=== PATIENT | female | born 1960 | race Caucasian/White ===

== ENCOUNTER 2022-07-19 10:00 | Outpatient (RCR) | payer MEDICAID, SELFPAY | END 2022-11-03 09:28 | disposition home or self-care (01) | PROVIDERS: PCP Physician Assistant Medical; Visit Provider Physician Assistant Medical | DX: N81.89 Other female genital prolapse (principal); M54.2 Cervicalgia; Z51.89 Encounter for other specified aftercare | CPT/HCPCS: 97110; 97112; 97140; 97162; 97163; 97535 ==

== ENCOUNTER 2024-02-12 18:25 | Emergency (ER) | payer OTHER, SELFPAY ==
[2024-02-12 18:32] VITALS: BP 108/68; PULSE 111; RESP 19; TEMP 37.7; O2SAT 94; BMI 24.5
--- NOTE | 2024-02-12 18:49 | CRLHL7_ITS ---
For Patients: As a result of the Century Cures Act, medical imaging exams and procedure reports are released immediately into your electronic medical record. You may view this report before your referring provider. If you have questions, please contact your health care provider. Indication Cough Technique Two view(s) of the chest Comparison None Findings The cardiomediastinal silhouette and pulmonary vasculature are unremarkable. There is no focal airspace consolidation, pleural effusion, or pneumothorax. No displaced fractures. Impression No acute cardiopulmonary process. Dictated by Tiburcio Rice MD @ 02/12/2024 7:40:08 PM (Electronically Signed)
--- NOTE | 2024-02-12 18:50 | ED.GENADULT ---
HPI - General Adult General Chief complaint: Sore Throat Stated complaint: Sore throat, shortness of breath Time Seen by Provider: 02/12/24 18:28 History of Present Illness HPI narrative: This 63-year-old female comes in reporting sore throat and congestion over the past week. She feels like she has some decreased ability to ambulate due to these symptoms. She did measure a temperature this morning at 101 and another time at 102? F. She arrives here with temperature at 99.9? F. She does have some tachycardia on arrival with heart rate around 110 beats per minute. She states that she had a mild sore throat for the past month or so but symptoms have worsened in the past week. Related Data Home Medications ?Medication ?Instructions ?Recorded ?Confirmed estradiol 0.01% (0.1 mg/gram) 1 vaginal .Twice Weekly 08/24/22 08/24/22 vaginal cream gabapentin 300 mg capsule 300 mg PO QDAY 08/24/22 08/24/22 paroxetine HCl 20 mg tablet 20 mg PO QDAY 08/24/22 08/24/22 Allergies Allergy/AdvReac Type Severity Reaction Status Date / Time tetracycline Allergy esophogeal Verified 08/24/22 09:27 ulcer thimerosal Allergy in eye Verified 08/24/22 09:27 gtts caused eyes to become bright red Review of Systems Status of ROS: Reports: 10 or more systems reviewed and unremarkable except as noted in History and below Narrative: Constitutional: No weight gain or loss. Eyes: No discharge. No vision changes. HENT: No congestion, no sore throat, no ear pain. Cardiovascular: No chest pain, no palpitations. Respiratory: No shortness of breath, no wheezes. She reports a cough. Gastrointestinal: No abdominal pain, no vomiting, no diarrhea. Genitourinary: No dysuria, no hematuria. Musculoskeletal: Normal range of motion. Skin: No rashes, no pruritis. Neurological: No weakness, sensory change, speech change. Endo/Heme/Allergies: No bruising or bleeding. No polydipsia. Pysch: no suicidality, no anxiety, no insomnia. All other systems reviewed and are negative. [facility] Medical History (Updated 02/12/24 @ 20:01 by Landon Somers MD) Vitamin D deficiency ?E55.9 - Vitamin D deficiency, unspecified (ICD-10) Basal cell carcinoma (BCC) ?C44.91 - Basal cell carcinoma of skin, unspecified (ICD-10) Anxiety ?F41.9 - Anxiety disorder, unspecified (ICD-10) Surgical History (Updated 08/24/22 @ 09:29 by Henny Maxwell ~ RN CLINICAL DOCUMENTATION, RN CLINICAL DOCUMENTATION) History of total vaginal hysterectomy (TVH) ?Z90.710 - Acquired absence of both cervix and uterus (ICD-10) Family History (Updated 08/18/22 @ 16:08 by Meghan Olmstead ~ PLATFORM ENGINEER, PLATFORM ENGINEER) Father Stroke High blood pressure High cholesterol Diabetes Maternal Grandfather Stroke Paternal Grandfather Stroke Mother Cancer Social History Smoking Status: Never smoker Exam Narrative: Exam Narrative: Constitutional: Well-developed, well-nourished, no acute distress. HEENT: Normocephalic, atraumatic. Neck: Normal range of motion. Nontender. Supple. Heart: Regular. No murmurs. Normal rate. Intact distal pulses. Lungs: Clear to auscultation. No chest discomfort. No wheezes, rhonchi, or rales. Abdomen: Normal bowel sounds. Nontender. No rebound tenderness. Genitalia: Deferred. Back: No midline tenderness. Normal range of motion. Extremities: Normal range of motion. No injury. Skin: Intact. No rash. Warm. No erythema or pallor. Neurologic: No altered sensation. No weakness. Alert and oriented. Psychiatric: No suicidality. No anxiety or depression. No insomnia. Nursing notes and vitals signs are reviewed. Const: Vital Signs, click to edit/add: Vital Signs - 24 hr 02/12/24 18:32 Temperature 99.9 F H Pulse Rate [Pulse Oximeter] 111 H Respiratory Rate 19 Blood Pressure [Ri ght Upper Arm] 108/68 Pulse Oximetry 94 Oxygen Delivery Me thod Room Air Course Vital Signs Vital signs: Initial Vital Signs Temperature 99.9 F H 02/12/24 18:32 Temperature Source Temporal Artery Scan 02/12/24 18:32 Pulse Rate 111 H 02/12/24 18:32 Respiratory Rate 19 02/12/24 18:32 Blood Pressure 108/68 02/12/24 18:32 Blood Pressure Mean 81 02/12/24 18:32 Pulse Oximetry 94 02/12/24 18:32 Oxygen Delivery Method Room Air 02/12/24 18:32 Vital Signs Temperature 99.9 F H 02/12/24 18:32 Pulse Rate 111 H 02/12/24 18:32 Respiratory Rate 19 02/12/24 18:32 Blood Pressure 108/68 02/12/24 18:32 Pulse Oximetry 94 02/12/24 18:32 Oxygen Delivery Method Room Air 02/12/24 18:32 Temperature 99.9 F H 02/12/24 18:32 Pulse Rate 111 H 02/12/24 18:32 Respiratory Rate 19 02/12/24 18:32 Blood Pressure 108/68 02/12/24 18:32 Pulse Oximetry 94 02/12/24 18:32 Oxygen Delivery Method Room Air 02/12/24 18:32 Medications Administered Medications: Discontinued Medications Generic Name Dose Route Start Last Admin Trade Name Jrq PRN Reason Stop Dose Admin Dexamethasone 10 mg 02/12/24 18:49 02/12/24 18:55 Dexamethasone 10 Mg/Ml Inj PO 02/12/24 18:50 10 mg ONCE ONE Administration Medical Decision Making MDM Narrative Medical decision making narrative: In comes in reporting sore throat and cough and states that she feels lightheaded a bit at 1st when getting up but she was able to ambulate in here normally. Her initial vital signs did show a heart rate at 111 beats per minute. Upon recheck at rest she had heart rate around 85-90 beats per minute. She is not tripping triggers that indicate a need for sepsis workup. A chest x-ray is obtained which shows no acute pulmonary disease. A viral swab is negative for all viral infections tested. Additionally her strep test was negative. The patient did receive an oral dose of dexamethasone 10 mg. She states that her symptoms began about a month ago but have worsened in the last week or so. She appears to be okay to be discharged home. I did provide prescription for Zithromax and some tablets of Tylenol 3. Lab Data Labs: Lab Results 02/12/24 Range/Units 18:45 SARS-CoV-2 (PCR) Negative SARS-CoV-2 (Negative) Influenza Type A (PCR) Negative PCR FLU A (Negative) Influenza Type B (PCR) Negative PCR FLU B (Negative) RSV (PCR) Negative PCR RSV (Negative) Group A Strep DNA NOT DETECTED (Not Detectd) Imaging Data Chest x-ray: Radiologist's impression: No acute cardiopulmonary process. Discharge Plan Discharge Clinical Impression: Acute respiratory infection Patient Disposition: Home w/ Parent or Adult Condition: Stable Additional Instructions: Take medication as prescribed. Follow up with MD or return if symptoms are persistent or worsening. Prescriptions: No Action estradiol 0.01 % (0.1 mg/gram) cream 1 vaginal .Twice Weekly Rx Instructions: use 0.5 g nightly for two weeks, then 1 g twice weekly paroxetine HCl 20 mg tablet 20 mg PO QDAY gabapentin 300 mg capsule 300 mg PO QDAY Follow Up/Referrals: Jeri Wheeler PA-C [Primary Care Provider] - Stand Alone Forms: [employer] Info Instructions
[2024-02-12] MEDS: dexAMETHasone 10 MG/ML inj PO (18:55)
[2024-02-12 19:26] LABS: Strep A DNA Probe* NOT DETECTED (Not Detectd)
[2024-02-12 19:35] LABS: PCR FLU A Negative PCR FLU A (Negative); PCR FLU B Negative PCR FLU B (Negative); PCR RSV Negative PCR RSV (Negative); SARS PCR* Negative SARS-CoV-2 (Negative)
== END 2024-02-12 20:08 | disposition home or self-care (01) ==
PROVIDERS: Emergency Provider Emergency Medicine Emergency Medical Services; PCP Physician Assistant Medical
DX: J06.9 Acute upper respiratory infection, unspecified (principal)
CPT/HCPCS: 71046; 87631; 87651; 99284; J1100

== ENCOUNTER 2024-02-14 17:13 | Emergency (ER) | payer OTHER, SELFPAY ==
[2024-02-14 17:33] VITALS: BP 101/60; PULSE 105; RESP 18; TEMP 38.5; O2SAT 96; BMI 25.1
--- NOTE | 2024-02-14 17:47 | CRLHL7_ITS ---
For Patients: As a result of the Cures Act, medical imaging exams and procedure reports are released immediately into your electronic medical record. You may view this report before your referring provider. If you have questions, please contact your health care provider. INDICATION: Cough, fever. TECHNIQUE: Chest 2 views. COMPARISON: 02/12/2024. FINDINGS: Cardiovascular and mediastinum: Heart size and vasculature are normal in caliber and appearance. Lungs and pleural spaces: Lungs are clear. No sign of infiltrate or mass. No sign of pleural effusion. No pneumothorax. Bones and soft tissues: Unremarkable for age. IMPRESSION: No evidence of an acute pulmonary process. Dictated by Daniel Doshi MD @ 02/14/2024 7:18:54 PM (Electronically Signed)
--- NOTE | 2024-02-14 18:10 | ED_ITS ---
HPI - General Adult General Date Seen: 02/14/24 Chief complaint: Urogenital Problems, Female Stated complaint: Blood in urine Time Seen by Provider: 02/14/24 17:29 Source: patient, RN notes reviewed and old records reviewed Mode of arrival: ambulatory Limitations: no limitations History of Present Illness HPI narrative: Patient is a 63-year-old woman, generally pretty healthy, here with a complaint of hematuria. She was seen here 2 days ago, with respiratory symptoms and fever. She tells me she has had a cough that is been hanging on for a month or 2 but it has been worse the past few days. She had an x-ray on Tuesday that was negative. She was treated with a Z-Michele, dexamethasone, but notes that she has not felt significantly improved. Continues to have fevers up to 102 at home. Today she noted some burning with urination this morning and then this afternoon she had gross hematuria. She denies chest pain, has felt somewhat short of breath. She has not had flank pain. Occasionally has had some lower abdominal pain but not currently. She has not had any appetite, has not had anything to eat for several days. No nausea or vomiting. No black or bloody stools. She has been trying to keep up with fluids. She reports that she has been kind of dizzy when she is trying to walk, has not had any syncopal spells. Related Data Home Medications ?Medication ?Instructions ?Recorded ?Confirmed estradiol 0.01% (0.1 mg/gram) 1 vaginal .Twice Weekly 08/24/22 08/24/22 vaginal cream gabapentin 300 mg capsule 300 mg PO QDAY 08/24/22 02/14/24 paroxetine HCl 20 mg tablet 20 mg PO QDAY 08/24/22 02/14/24 Allergies Allergy/AdvReac Type Severity Reaction Status Date / Time tetracycline Allergy esophogeal Verified 02/14/24 20:28 ulcer thimerosal Allergy in eye Verified 02/14/24 20:28 gtts caused eyes to become bright red Review of Systems Status of ROS: Reports: 10 or more systems reviewed and unremarkable except as noted in History and below [facility] Medical History Vitamin D deficiency ?E55.9 - Vitamin D deficiency, unspecified (ICD-10) Basal cell carcinoma (BCC) ?C44.91 - Basal cell carcinoma of skin, unspecified (ICD-10) Anxiety ?F41.9 - Anxiety disorder, unspecified (ICD-10) Surgical History History of total vaginal hysterectomy (TVH) ?Z90.710 - Acquired absence of both cervix and uterus (ICD-10) Family History Father Stroke High blood pressure High cholesterol Diabetes Maternal Grandfather Stroke Paternal Grandfather Stroke Mother Cancer Social History Smoking Status: Never smoker Do you use any of these nicotine containing products: None Second hand tobacco smoke exposure: No Exam Narrative: Exam Narrative: Vital signs as noted above. In general, an alert, nontoxic woman. Looks somewhat fatigued. Head: Normocephalic, atraumatic. Eyes: Pupils are equal reactive. Extraocular movements are full. Conjunctivae are normal. No nystagmus. ENT: Mucous membranes are moist. Throat is normal. Nares congested. TMs normal bilaterally. Neck: Supple without lymphadenopathy. No stridor. Heart: Mild tachycardia, regular. No murmur. Lungs: Clear bilaterally. No increased work of breathing, crackles or wheezes. Abdomen: Soft and nontender. Extremities: Well perfused. No edema. No calf tenderness. Pulses intact. Neurologic: Patient is alert and oriented to person and place. Speech is fluent. Face is symmetric. Moves all extremities equally. Affect: Normal. Skin: Warm and dry. Well perfused. Const: Vital Signs, click to edit/add: Vital Signs - 24 hr 02/14/24 17:33 02/14/24 19:34 02/14/24 22:31 Temperature 101.3 F H 100.1 F H 99.5 F Pulse Rate [Pulse Oximeter] 105 H 92 80 Respiratory Rate 18 20 16 Blood Pressure [Ri ght Upper Arm] 101/60 107/75 99/48 L Pulse Oximetry 96 95 93 Oxygen Delivery Me thod Room Air Room Air Room Air Documenting provider has reviewed patient's vital signs: yes Course Course ED Course: I reviewed her records, she had a negative chest x-ray, COVID influenza and RSV on Tuesday. She remains somewhat tachycardic and febrile, I think it would be reasonable today to do some labs, repeat chest x-ray, UA. Unclear whether she has 2 separate processes going on here if they are connected. Diagnostic consi derations would include sepsis from an as yet unidentified source, UTI, pyelonephritis, pneumonia, glomerular nephritis, among others. Normal saline 1 L. Labs [place] [address], hemoglobin of 9.3, [place] [address]. This was predominantly monocytes, it 87%, her absolute neutrophil count is 500. Metabolic panel is normal, creatinine is 0.8. CRP is less than 0.5. Her urinalysis showed 2-5 red cells, 2-5 white blood cells. Chest x-ray by my review was negative, negative by radiology read. I did elect to do a CT of the chest abdomen pelvis upon receipt of her CBC and with her fever. She did have blood cultures drawn and urine was cultured as well. I consulted hematology/oncology at [facility]. They agreed with transfer for treatment of neutropenic fever given her absolute neutrophil count is low, as well as heme Onc consultation. I gave her Zosyn and vancomycin pending cultures. CT scan of the chest abdomen pelvis was read by Radiology as showing no acute findings. She has been without further complaints here in the emergency department. Awaiting transfer to [facility]. Vital Signs Vital signs: Initial Vital Signs Temperature 101.3 F H 02/14/24 17:33 Temperature Source Temporal Artery Scan 02/14/24 17:33 Pulse Rate 105 H 02/14/24 17:33 Respiratory Rate 18 02/14/24 17:33 Blood Pressure 101/60 02/14/24 17:33 Blood Pressure Mean 73 02/14/24 17:33 Blood Pressure Position Sitting 02/14/24 17:33 Pulse Oximetry 96 02/14/24 17:33 Oxygen Delivery Method Room Air 02/14/24 17:33 Vital Signs Temperature 101.3 F H 02/14/24 17:33 Pulse Rate 105 H 02/14/24 17:33 Respiratory Rate 18 02/14/24 17:33 Blood Pressure 101/60 02/14/24 17:33 Pulse Oximetry 96 02/14/24 17:33 Oxygen Delivery Method Room Air 02/14/24 17:33 Temperature 99.5 F 02/14/24 22:31 Pulse Rate 80 02/14/24 22:31 Respiratory Rate 16 02/14/24 22:31 Blood Pressure 99/48 L 02/14/24 22:31 Pulse Oximetry 93 02/14/24 22:31 Oxygen Delivery Method Room Air 02/14/24 22:31 Medications Administered Medications: Discontinued Medications Generic Name Dose Route Start Last Admin Trade Name Anuel PRN Reason Stop Dose Admin Acetaminophen 1,000 mg 02/14/24 18:09 02/14/24 18:55 Acetaminophen 500 Mg Tablet PO 02/14/24 18:10 1,000 mg ONCE ONE Administration Sodium Chloride 1,000 mls @ 1,000 mls/hr 02/14/24 18:00 02/14/24 19:38 0.9 % Sodium Chloride 1000 Ml IV 02/14/24 18:59 Infused .Q1H MATHEW Infusion Piperacillin Sod/Tazobactam 100 mls @ 100 mls/hr 02/14/24 21:03 02/14/24 22:29 Sod 3.375 gm/ Sodium Chloride IVPB 02/14/24 21:04 Infused ONCE ONE Infusion Vancomycin HCl 1,500 mg/ 515 mls @ 257.5 mls/hr 02/14/24 21:03 02/14/24 22:29 Sodium Chloride IVPB 02/14/24 21:04 257.5 mls/hr ONCE ONE Administration Protocol Medical Decision Making Lab Data Labs: Lab Results 02/14/24 02/14/24 02/14/24 Range/Units 18:07 18:30 18:46 WBC 92.63 H* 85.80 H* (4.50-11.00) K/uL RBC 2.99 L 2.95 L (4.00-5.20) m/uL Hgb 9.5 L 9.3 L (12.0-16.0) gm/dL Hct 28.6 L 28.3 L (33.0-51.0) % MCV 96 96 (80-100) fL MCH 32 32 (26-34) pg MCHC 33 33 (32-36) gm/dL RDW Coeff of [place] 17.6 H 17.5 H (11.5-15.5) % Plt Count 49 L* 39 L* (140-440) K/uL Neut % (Auto) 0.8 L 0.6 L (42.0-72.0) % Lymph % (Auto) 9.7 L 12.6 L (20-44) % Gordon % (Auto) 89.5 H 86.7 H (0.0-11.0) % Eos % (Auto) 0.0 0.0 (0.0-7.0) % Baso % (Auto) 0.0 0.0 (0.0-3.0) % Neut # (Auto) 0.70 L 0.50 L (1.7-7.0) K/uL Lymph # (Auto) 9.00 H 10.80 H (0.90-2.90) K/uL Gordon # (Auto) 82.90 H 74.40 H (0.00-0.90) K/UL Eos # (Auto) 0.00 0.00 (0.00-0.50) K/uL Baso # (Auto) 0.00 0.00 (0.00-0.30) K/uL Abs Immat Gran (auto) 0.00 0.10 (0.00-0.30) K/uL Imm/Tot Granulo (auto) 0.0 0.1 % Diff Slide Review Acceptable Review (Acceptable) Sodium 135 (135-149) mmol/L Potassium 4.6 (3.6-5.1) mmol/L Chloride 102 (96-114) mmol/L Carbon Dioxide 29 (20-32) mmol/L Anion Gap 4 L (7-15) mEq/L BUN 21 (7-30) mg/dL Creatinine 0.8 (0.5-1.5) mg/dL Estimated Creat Clear 58.09 Estimated GFR 83 ml/min Glucose 111 (60-115) mg/dL Lactate 1.2 (0.5-1.9) mmol/L Calcium 10.1 (8.4-10.6) mg/dL C-Reactive Protein < 0.5 L (0.5-1.0) mg/dL Urine Color Yellow (Yellow) Urine Appearance Clear (Clear) Urine pH 6.5 (5.0-8.5) Ur Specific [place] 1.015 (1.000-1.030) Urine Protein 1+ A (Negative) Urine Glucose (UA) Negative (Negative) Urine Ketones Negative (Negative) Urine Blood 1+ A (Negative) Urine Nitrite Negative (Negative) Urine Bilirubin Negative (Negative) Urine Urobilinogen 2.0 A (0.2-1.0) Ur Leukocyte Esterase Negative (Negative) Urine RBC 2-5 A (0-2) Urine WBC 2-5 (0-5) Ur Squamous Epith Cells Few (None-Few) Amorphous Sediment Moderate A (None) Urine Bacteria Moderate A (None) Discharge Plan Discharge Clinical Impression: Fever and neutropenia, Monocytosis Patient Disposition: Xfer Other Condition: Stable Prescriptions: No Action estradiol 0.01 % (0.1 mg/gram) cream 1 vaginal .Twice Weekly Rx Instructions: use 0.5 g nightly for two weeks, then 1 g twice weekly paroxetine HCl 20 mg tablet 20 mg PO QDAY gabapentin 300 mg capsule 300 mg PO QDAY Stand Alone Forms: [employer] Info Instructions
[2024-02-14 18:18] LABS: Lactate Sepsis w/Reflex* 1.2 mmol/L (0.5-1.9)
[2024-02-14 18:25] LABS: Hematocrit 28.6 % (33.0-51.0); Hemoglobin* 9.5 gm/dL (12.0-16.0); Lymphocytes Percent Auto 9.7 % (20-44); Mean Corpuscular HGB Conc 33 gm/dL (32-36); Mean Corpuscular Hemoglobin 32 pg (26-34); Mean Corpuscular Volume 96 fL (80-100); Monocytes Percent Auto 89.5 % (0.0-11.0); Neutrophils Percent Auto 0.8 % (42.0-72.0); RDW Coefficient of Variation % 17.6 % (11.5-15.5); Red Blood Count 2.99 m/uL (4.00-5.20)
[2024-02-14 18:36] LABS: Platelet Count* 49 K/uL (140-440); White Blood Count* 92.63 K/uL (4.50-11.00)
[2024-02-14 18:37] LABS: Slide Review Reflex Yes
[2024-02-14 18:38] LABS: Appearance Urine Clear (Clear); Bilirubin Urine Negative (Negative); Blood Urine 1+ (Negative); Color Urine Yellow (Yellow); Glucose Urine Negative (Negative); Ketones Urine Negative (Negative); Leukocyte Esterase Urine Negative (Negative); Nitrite Urine Negative (Negative); Protein Urine 1+ (Negative); Specific Gravity Urine 1.015 (1.000-1.030); pH Urine 6.5 (5.0-8.5)
[2024-02-14] MEDS: 0.9 % SODIUM CHLORIDE 1000 ml 1,000 ML IV (18:46)
[2024-02-14 18:51] LABS: Amorphous Sediment Urine Moderate; Bacteria Urine Moderate; Squamous Epithelial Cell Urine Few (None-Few)
[2024-02-14 18:52] LABS: Hematocrit 28.3 % (33.0-51.0); Hemoglobin* 9.3 gm/dL (12.0-16.0); Immature Granulocytes Pct Auto 0.1 %; Lymphocytes Percent Auto 12.6 % (20-44); Mean Corpuscular HGB Conc 33 gm/dL (32-36); Mean Corpuscular Hemoglobin 32 pg (26-34); Mean Corpuscular Volume 96 fL (80-100); Monocytes Percent Auto 86.7 % (0.0-11.0); Neutrophils Percent Auto 0.6 % (42.0-72.0); RDW Coefficient of Variation % 17.5 % (11.5-15.5); Red Blood Count 2.95 m/uL (4.00-5.20)
[2024-02-14] MEDS: ACETAMINOPHEN 500 MG TABLET 1000 MG PO (18:55)
[2024-02-14 19:02] LABS: Chloride* 102 mmol/L (96-114); Potassium* 4.6 mmol/L (3.6-5.1); Sodium* 135 mmol/L (135-149)
[2024-02-14 19:05] LABS: Creatinine* 0.8 mg/dL (0.5-1.5); Est. Creatinine Clearance* 58.09; Estimated Glomerular Filt Rate 83 ml/min
[2024-02-14 19:06] LABS: Anion Gap 4 mEq/L (7-15); Blood Urea Nitrogen* 21 mg/dL (7-30); Calcium* 10.1 mg/dL (8.4-10.6); Carbon Dioxide* 29 mmol/L (20-32); Glucose* 111 mg/dL (60-115)
[2024-02-14 19:18] LABS: Slide Review Acceptable Review (Acceptable)
[2024-02-14 19:30] LABS: Platelet Count* 39 K/uL (140-440)
[2024-02-14 19:34] VITALS: BP 107/75; PULSE 92; RESP 20; TEMP 37.8; O2SAT 95
[2024-02-14 19:35] LABS: C Reactive Protein* < 0.5 mg/dL (0.5-1.0)
--- NOTE | 2024-02-14 19:50 | CRLHL7_ITS ---
For Patients: As a result of the Century Cures Act, medical imaging exams and procedure reports are released immediately into your electronic medical record. You may view this report before your referring provider. If you have questions, please contact your health care provider. INDICATION: Cough, elevated white blood cell count, anemia, thrombocytopenia TECHNIQUE: CT chest, abdomen and pelvis acquired with 81 cc of Isovue 370 IV contrast. COMPARISON: CT abdomen and pelvis 04/04/2020 (report only). FINDINGS: CHEST: Cardiovascular structures: Heart size is normal. Thoracic aorta and main pulmonary artery are normal in caliber. No pulmonary embolism identified. Mediastinum and stefanie: No mass or adenopathy. Lungs and pleura: Thin band of scarring within the right lower lobe superior segment. No consolidation, suspicious nodule, pleural effusion, pneumothorax. The central airways are clear. Chest wall and axilla: No mass or adenopathy. Bones: No suspicious bone lesions. Unremarkable for age. ABDOMEN AND PELVIS: Liver: Diffuse fatty infiltration. Normal contour. No suspicious mass. Gallbladder and bile ducts: Unremarkable. Pancreas: Unremarkable. Spleen: Unremarkable. Adrenal glands: Unremarkable. Kidneys: Unremarkable. GI tract: 3.8 cm duodenal diverticulum at 3rd portion. No bowel obstruction. Prior appendectomy. Vascular structures: Unremarkable. Lymph nodes: Unremarkable. Miscellaneous: Unremarkable. No free air or significant free fluid. Pelvic Organs: Status post hysterectomy. Bones: No suspicious bone lesions. Advanced degenerative disc disease at L5-S1. Otherwise, unremarkable for age. IMPRESSION: 1. No acute findings within the chest, abdomen, or pelvis. 2. Hepatic steatosis. Please note that all CT scans at this facility use dose modulation, iterative reconstruction, and/or weight-based dosing when appropriate to reduce radiation dose to as low as reasonably achievable. Dictated by Daniel Doshi MD @ 02/14/2024 9:12:19 PM (Electronically Signed)
[2024-02-14] MEDS: PIPERACILLIN/TAZOBACTAM 3.375 GM in 0.9 % SODIUM CHLORIDE Mini-bag 100 ML IVPB (21:40)
[2024-02-14 22:12] LABS: Slide Review Reflex No
[2024-02-14 22:31] VITALS: BP 99/48; PULSE 80; RESP 16; TEMP 37.5; O2SAT 93
[2024-02-15 00:52] VITALS: BP 125/78; PULSE 102; RESP 18; TEMP 37; O2SAT 95
== END 2024-02-15 02:45 | disposition other institution (70) ==
PROVIDERS: Emergency Provider Emergency Medicine; PCP Physician Assistant Medical
DX: D70.9 Neutropenia, unspecified (principal); D72.821 Monocytosis (symptomatic)
CPT/HCPCS: 36415; 71046; 71260; 74177; 80048; 81001; 83605; 85025; 86140; 87040; 87086; 96365; 96366; 99284; 99285; A9270; J2543; J3370; J7030; Q9967

== ENCOUNTER 2024-02-15 02:42 | Outpatient (CLI) | payer OTHER, SELFPAY | END 2024-02-15 02:43 | disposition home or self-care (01) | LOC: AMB 02-18 20:04 | PROVIDERS: PCP Physician Assistant Medical; Visit Provider Family Medicine | DX: D72.821 Monocytosis (symptomatic) (principal); D70.9 Neutropenia, unspecified | CPT/HCPCS: A0425; A0429 ==

== ENCOUNTER 2024-04-04 15:30 | Emergency (ER) | payer OTHER, SELFPAY ==
[2024-04-04] VITALS (12 sets, daily range): BP systolic 127; BP diastolic 78; PULSE 87–113; RESP 18; TEMP 36.4; O2SAT 95–98; BMI 26.5
--- NOTE | 2024-04-04 15:42 | ED_ITS ---
HPI - General Adult General Time Seen by Provider: 15:42 Date Seen: 04/04/24 Chief complaint: Abdominal Pain Stated complaint: abdominal bloating - blockage? Time Seen by Provider: 04/04/24 15:37 Source: patient and RN notes reviewed Mode of arrival: ambulatory Limitations: no limitations History of Present Illness HPI narrative: This 63-year-old female is ambulatory into the ED of her own accord with concern of possible obstruction. She last night was having significant episodic burning in her epigastric area and associated regurgitant reflux symptoms. She has a remote history of this. 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 Constipation is 1 of the side effects. She is passing flatus, had a little small stool output. Her abdomen feels bloated but no abdominal pain per se. She has not noted any fevers or chills, has been checking her temperature. She is on senna and MiraLax baseline. She notes if she eats or drinks symptoms get worse. She is not on any proton pump inhibitor or such medicine. She is being awoken in her sleep from reflux symptoms as well. Did try to take a nap today he and the regurgitant symptoms did wake her up. Related Data Home Medications ?Medication ?Instructions ?Recorded ?Confirmed estradiol 0.01% (0.1 mg/gram) 1 vaginal .Twice Weekly 08/24/22 08/24/22 vaginal cream gabapentin 300 mg capsule 300 mg PO QDAY 08/24/22 02/14/24 paroxetine HCl 20 mg tablet 20 mg PO QDAY 08/24/22 02/14/24 Allergies Allergy/AdvReac Type Severity Reaction Status Date / Time tetracycline Allergy esophogeal Verified 04/04/24 15:36 ulcer thimerosal Allergy in eye Verified 04/04/24 15:36 gtts caused eyes to become bright red Review of Systems Status of ROS: Reports: 6 or more systems reviewed and unremarkable except as noted in History and below [facility] Medical History Vitamin D deficiency ?E55.9 - Vitamin D deficiency, unspecified (ICD-10) Basal cell carcinoma (BCC) ?C44.91 - Basal cell carcinoma of skin, unspecified (ICD-10) Anxiety ?F41.9 - Anxiety disorder, unspecified (ICD-10) Surgical History History of total vaginal hysterectomy (TVH) ?Z90.710 - Acquired absence of both cervix and uterus (ICD-10) Family History Father Stroke High blood pressure High cholesterol Diabetes Maternal Grandfather Stroke Paternal Grandfather Stroke Mother Cancer Social History Smoking Status: Never smoker Do you use any of these nicotine containing products: None Second hand tobacco smoke exposure: No Exam Const: Vital Signs, click to edit/add: Vital Signs - 24 hr 04/04/24 15:33 04/04/24 16:33 04/04/24 16:45 Temperature 97.5 F L Pulse Rate 96 96 Pulse Rate [Pulse Oximeter] 113 H Respiratory Rate 18 Blood Pressure [Ri ght Upper Arm] 127/78 Pulse Oximetry 96 95 96 Oxygen Delivery Me thod Room Air 04/04/24 17:00 04/04/24 17:15 04/04/24 17:30 Temperature Pulse Rate 94 94 92 Pulse Rate [Pulse Oximeter] Respiratory Rate Blood Pressure [Ri ght Upper Arm] Pulse Oximetry 95 96 95 Oxygen Delivery Me thod 04/04/24 17:45 04/04/24 18:00 04/04/24 18:15 Temperature Pulse Rate 98 89 95 Pulse Rate [Pulse Oximeter] Respiratory Rate Blood Pressure [Ri ght Upper Arm] Pulse Oximetry 97 96 96 Oxygen Delivery Me thod 04/04/24 18:30 04/04/24 18:45 04/04/24 19:00 Temperature Pulse Rate 87 88 87 Pulse Rate [Pulse Oximeter] Respiratory Rate Blood Pressure [Ri ght Upper Arm] Pulse Oximetry 97 98 97 Oxygen Delivery Me thod This 63-year-old female is alert, interactive, no apparent distress. Sclera clear, conjugate gaze. Overall skin appears pale but no rashes or concerning lesions noted. She speaking complete sentences. Neck supple, no adenopathy, no masses, no thyromegaly masses or nodules. Lungs are clear, good air entry, no tachypnea, no wheezing or crackles. CV regular rate and rhythm, no murmur, normal S1-S2, no S3-S4. Abdomen is slightly distended, bowel sounds are faint but present. She has no organomegaly or masses no rebound or guarding, no significant tenderness. She is ambulatory into the ED of her own accord. Moving her extremities, no focal neurologic concern noted. Documenting provider has reviewed patient's vital signs: yes Course Course ED Course: This 63-year-old female certainly could have constipation that is aggravating heartburn with regurgitant symptoms. Did discuss with her though that I do think we should look at a troponin and EKG. We will start with imaging of flat and upright of her abdomen, may need to consider more advanced imaging. We will get baseline labs. Overall she is hemodynamically stable, reporting no fevers so doubt infection. This is a chemotherapy patient, will see where her cell counts are. Reevaluation(s) Time of Reevaluation #1: 17:18 Reevaluation #1: Reviewed with patient that her troponin is mildly elevated. She does have a little bit of epigastric discomfort [place] [address], she states she would be getting transfusion of platelets tomorrow and on as well as packed red blood cells. With her platelets being this low, elevated troponin, do feel that he need to talk to Oncology as well as Cardiology. I do not know what chemotherapeutic agents she is on at this time but will try to figure that out. We did discuss that she does have significant constipation. Offered some morphine at this time for the epigastric discomfort and heartburn sensation, she is declining. Hopefully will be able to talk to the specialists shortly. Can try some IV Protonix to see if this does help some of her symptoms. Time of Reevaluation #2: 17:39 Reevaluation #2: Reviewed with patient that her troponin is at 0.1, both Oncology in Cardiology agree with trending this but if stable, discharge to home. We discussed her constipation, discussed MiraLax protocol. She is not to use any enemas or nothing rectally so as to not aggravate any bleeding. Her platelets are only 17,000. The constipation may take some time to work through but it is something that we do not have a quick fix for her. We we discussed platelet transfusion, she has an appointment tomorrow to have this done, is not actively bleeding. She states that she has to get ?special platelets?, believes that she has an antibody. This would make getting platelets here in a timely fashion very difficult. She is understanding of the situation, we will get a follow-up troponin at 6:00 p.m.. Time of Reevaluation #3: 18:55 Reevaluation #3: Repeat point of care troponin is stable. Patient will be discharged to work on outpatient constipation, have her transfusions outpatient tomorrow as planned. Consultations Consultation #1: Did speak with both Dr. Alvarado in cardiology and subsequently Dr. Larsen in Oncology. Neither are overly concerned about the troponin, do feel a follow-up troponin should be done which is planned now. She would not be a candidate for cardiac catheterization, cannot take aspirin. Dr. Larsen did talk about these complex patient's sometimes having mildly elevated troponins. We did review that the troponin I was 0.10. She again reiterated that this patient cannot have any aspirin and at this point there really is not much in the way of treatment. She did discuss platelet transfusion, we reviewed that we do not have full complement of platelets, this patient can wait in her opinion if she is not bleeding which she has not. We discussed the constipation, nothing rectally which we were already aware of given the platelet count. She agrees that the patient can do an out patient MiraLax prep. Did discuss hospitalization, she does not feel that this is a necessary for this patient. Time: 17:26 Vital Signs Vital signs: Initial Vital Signs Temperature 97.5 F L 04/04/24 15:33 Temperature Source Temporal Artery Scan 04/04/24 15:33 Pulse Rate 113 H 04/04/24 15:33 Respiratory Rate 18 04/04/24 15:33 Blood Pressure 127/78 04/04/24 15:33 Blood Pressure Mean 94 04/04/24 15:33 Blood Pressure Position Sitting 04/04/24 15:33 Pulse Oximetry 96 04/04/24 15:33 Oxygen Delivery Method Room Air 04/04/24 15:33 Vital Signs Temperature 97.5 F L 04/04/24 15:33 Pulse Rate 113 H 04/04/24 15:33 Respiratory Rate 18 04/04/24 15:33 Blood Pressure 127/78 04/04/24 15:33 Pulse Oximetry 96 04/04/24 15:33 Oxygen Delivery Method Room Air 04/04/24 15:33 Temperature 97.5 F L 04/04/24 15:33 Pulse Rate 87 04/04/24 19:00 Respiratory Rate 18 04/04/24 15:33 Blood Pressure 127/78 04/04/24 15:33 Pulse Oximetry 97 04/04/24 19:00 Oxygen Delivery Method Room Air 04/04/24 15:33 Medications Administered Medications: Discontinued Medications Generic Name Dose Route Start Last Admin Trade Name Freq PRN Reason Stop Dose Admin Pantoprazole Sodium 40 mg 04/04/24 17:22 04/04/24 17:48 Pantoprazole Sodium 40 Mg Inj IVP 04/04/24 17:23 40 mg ONCE ONE Administration Medical Decision Making Lab Data Lab results reviewed: Yes I reviewed the patient's lab results Labs: Lab Results 04/04/24 04/04/24 04/04/24 Range/Units 16:00 16:05 18:36 WBC 0.79 L* (4.50-11.00) K/uL RBC 2.74 L (4.00-5.20) m/uL Hgb 8.5 L (12.0-16.0) gm/dL Hct 27.0 L (33.0-51.0) % MCV 99 (80-100) fL MCH 31 (26-34) pg MCHC 32 (32-36) gm/dL RDW Coeff of [place] 16.2 H (11.5-15.5) % Plt Count 17 L* (140-440) K/uL Neut % (Auto) 10.1 L (42.0-72.0) % Lymph % (Auto) 72.2 H (20-44) % [place] % (Auto) 2.5 (0.0-11.0) % Eos % (Auto) 11.4 H (0.0-7.0) % Baso % (Auto) 3.8 H (0.0-3.0) % Neut # (Auto) 0.10 L (1.7-7.0) K/uL Lymph # (Auto) 0.60 L (0.90-2.90) K/uL [place] # (Auto) 0.00 (0.00-0.90) K/UL Eos # (Auto) 0.10 (0.00-0.50) K/uL Baso # (Auto) 0.00 (0.00-0.30) K/uL Abs Immat Gran (auto) 0.00 (0.00-0.30) K/uL Imm/Tot Granulo (auto) 0.0 % Diff Slide Review (Acceptable) Sodium 137 (135-149) mmol/L Potassium 3.9 (3.6-5.1) mmol/L Chloride 106 (96-114) mmol/L Carbon Dioxide 24 (20-32) mmol/L Anion Gap 7 (7-15) mEq/L BUN 21 (7-30) mg/dL Creatinine 0.5 (0.5-1.5) mg/dL Estimated Creat Clear 58.09 Estimated GFR 105 ml/min Glucose 122 H (60-115) mg/dL Lactate 2.7 H (0.5-1.9) mmol/L Calcium 8.9 (8.4-10.6) mg/dL Total Bilirubin 0.4 (0.1-1.5) mg/dL Direct Bilirubin 0.3 (0.0-0.5) mg/dL AST 27 (12-35) U/L ALT 45 H (4-35) U/L Alkaline Phosphatase 92 (40-150) U/L Troponin I 0.10 H* (0.01-0.04) ng/mL C-Reactive Protein 2.8 H (0.5-1.0) mg/dL Total Protein 6.2 (6.0-8.3) g/dL Albumin 3.8 (3.3-5.0) g/dL POC Troponin I 0.08 H 0.09 H (0.01-0.04) ng/ml Imaging Data Abdominal x-ray: Attestation: I have reviewed the pertinent imaging results. My impression: I see significant stool buildup in the colon but no evidence of obstruction. Stool is higher than rectal vault, doubt enemas are going to be helpful. Radiologist's impression: Patient: CHARLENE CHAVEZ Facility:?[facility] Patient ID:?[id number] Site Patient ID:?[id number]. Site :?[id number] Study:?XRay-Abdomen/Pelvis 2 VIEW-04/04/2024 4:14:36 PM Ordering Physician:?Braulio Lovett Final Report: INDICATION: Abdominal pain TECHNIQUE: Upright and supine views. COMPARISON: None available FINDINGS: There is a nonspecific, nonobstructive bowel gas pattern. There is a severe diffuse amount of intracolonic fecal distention. There is no intra-abdominal free air or pathologic calcification. There is no acute osseous abnormality. IMPRESSION: Severe stool seen throughout the colon. No evidence of obstruction. Dictated by Andrew Velasco MD @ 04/04/2024 4:42:46 PM (Electronic Signature) ECG Data Attestation: I personally reviewed and interpreted this ECG as follows: (Normal sinus rhythm, 96 beats per minute. No ischemia or infarct.) Prior ECG tracings: not available for review Discharge Plan Discharge Clinical Impression: Elevated troponin Constipation Qualifiers: Constipation type: unspecified constipation type Qualified Code(s): K59.00 - Constipation, unspecified Gastroesophageal reflux disease Qualifiers: Esophagitis presence: esophagitis presence not specified Qualified Code(s): K21.9 - Gastro-esophageal reflux disease without esophagitis Patient Disposition: Home, Self-Care Condition: Stable Instructions: Constipation (ED), GERD (Gastroesophageal Reflux Disease) (ED) Additional Instructions: Take 238gm bottle of Miralax and place into 64 oz of fluids of choice (any gatorade or fluids will work as color is not an issue as this is not being done for colonoscopy). You received Protonix here tonight, if you continue to experience heartburn with correction of constipation, need to follow up in clinic and consider taking a daily proton pump inhibitor like omeprazole. Keep your appointments for your transfusions tomorrow as scheduled. If you are experiencing increasing pain, please seek re-evaluation. Activity Level: Activity as Tolerated Prescriptions: No Action estradiol 0.01 % (0.1 mg/gram) cream 1 vaginal .Twice Weekly Rx Instructions: use 0.5 g nightly for two weeks, then 1 g twice weekly paroxetine HCl 20 mg tablet 20 mg PO QDAY gabapentin 300 mg capsule 300 mg PO QDAY Follow Up/Referrals: Jeri Wheeler PA-C [Primary Care Provider] - Stand Alone Forms: [employer] Info Instructions
--- NOTE | 2024-04-04 15:53 | CRLHL7_ITS ---
For Patients: As a result of the Century Cures Act, medical imaging exams and procedure reports are released immediately into your electronic medical record. You may view this report before your referring provider. If you have questions, please contact your health care provider. INDICATION: Bloating, reflux, and possible constipation COMPARISON: Same day CT abdomen/pelvis TECHNIQUE: Single frontal radiographic view(s) of the abdomen. FINDINGS: Large colonic stool volume. There are osseous degenerative changes. No focal abnormally dilated loops of small bowel are detected. IMPRESSION: Large colonic stool volume. Dictated by Armond Padgett MD @ 04/04/2024 4:42:32 PM (Electronically Signed)
[2024-04-04 16:09] LABS: Lactate* 2.7 mmol/L (0.5-1.9)
[2024-04-04 16:16] LABS: Basophils Percent Auto 3.8 % (0.0-3.0); Eosinophils Percent Auto 11.4 % (0.0-7.0); Hemoglobin* 8.5 gm/dL (12.0-16.0); Lymphocytes Percent Auto 72.2 % (20-44); Mean Corpuscular HGB Conc 32 gm/dL (32-36); Mean Corpuscular Hemoglobin 31 pg (26-34); Mean Corpuscular Volume 99 fL (80-100); Monocytes Percent Auto 2.5 % (0.0-11.0); Neutrophils Percent Auto 10.1 % (42.0-72.0); RDW Coefficient of Variation % 16.2 % (11.5-15.5); Red Blood Count 2.74 m/uL (4.00-5.20)
[2024-04-04 16:19] LABS: Troponin, Point-of-Care* 0.08 ng/ml (0.01-0.04)
[2024-04-04 16:23] LABS: White Blood Count* 0.79 K/uL (4.50-11.00)
[2024-04-04 16:24] LABS: Platelet Count* 17 K/uL (140-440); Slide Review Reflex Yes
[2024-04-04 16:29] LABS: Albumin* 3.8 g/dL (3.3-5.0); Chloride* 106 mmol/L (96-114); Sodium* 137 mmol/L (135-149)
[2024-04-04 16:30] LABS: Potassium* 3.9 mmol/L (3.6-5.1)
[2024-04-04 16:31] LABS: Creatinine* 0.5 mg/dL (0.5-1.5); Est. Creatinine Clearance* 58.09; Estimated Glomerular Filt Rate 105 ml/min
[2024-04-04 16:32] LABS: Alanine Aminotransferase* 45 U/L (4-35); Alkaline Phosphatase* 92 U/L (40-150); Anion Gap 7 mEq/L (7-15); Aspartate Amino Transferase* 27 U/L (12-35); Bilirubin Direct* 0.3 mg/dL (0.0-0.5); Bilirubin Total* 0.4 mg/dL (0.1-1.5); Blood Urea Nitrogen* 21 mg/dL (7-30); Carbon Dioxide* 24 mmol/L (20-32); Glucose* 122 mg/dL (60-115); Total Protein* 6.2 g/dL (6.0-8.3)
[2024-04-04 16:33] LABS: Calcium* 8.9 mg/dL (8.4-10.6)
[2024-04-04 16:35] LABS: C Reactive Protein* 2.8 mg/dL (0.5-1.0)
[2024-04-04] MEDS: PANTOPRAZOLE SODIUM 40 MG INJ IVP (17:48)
[2024-04-04 18:48] LABS: Troponin, Point-of-Care* 0.09 ng/ml (0.01-0.04)
== END 2024-04-04 19:11 | disposition home or self-care (01) ==
PROVIDERS: Emergency Provider Family Medicine; PCP Physician Assistant Medical
DX: K59.00 Constipation, unspecified (principal); K21.9 Gastro-esophageal reflux disease without esophagitis; R79.89 Other specified abnormal findings of blood chemistry
CPT/HCPCS: 36415; 74019; 80053; 82248; 83605; 84484; 85025; 86140; 93005; 94761; 96374; 99284; 99285; J2470

== ENCOUNTER 2024-04-06 17:47 | Emergency (ER) | payer OTHER, SELFPAY ==
[2024-04-06 17:55] VITALS: BP 122/65; PULSE 94; RESP 18; TEMP 36.2; O2SAT 94; BMI 27.4
--- NOTE | 2024-04-06 18:11 | ED.GENADULT ---
HPI - General Adult General Chief complaint: Unspecified Complaint, Adult Stated complaint: platelet count check Time Seen by Provider: 04/06/24 18:01 History of Present Illness HPI narrative: Is an oncology pt requiring chemo for her leukemia. dx 6 weeks ago. was at [facility] today and received 2 bags of platelets 0930 and then at 1300. was called this afternoon and was told to get her platelets re checked as the lab had initially stated that they were 2 then 8 then after the second bag it declines to 2 again. denies any pain or other concerns. was told to do to [facility] ED. has a picc line in her right upper arm with a blood draw port. this does require wasting before and saline flushing after the draw as this is a valved PICC. -Date of Onset of Symptoms 04/06 63-year-old woman presenting to the emergency department for a recheck of platelets. History of leukemia. Apparently had lab drawn today before and after platelet infusion with some concern of discrepancy in lab results for platelet level. Otherwise Ms. Mckeon feels in what is now usual L state of health. Tired. No abdominal pain. No melena or hematochezia noted. Last chemo was 4 days duration finished about 10 days ago. She has not had a fever. No complaint of headache. No unusual shortness of breath. No rashes noted. Related Data Home Medications ?Medication ?Instructions ?Recorded ?Confirmed estradiol 0.01% (0.1 mg/gram) 1 vaginal .Twice Weekly 08/24/22 08/24/22 vaginal cream gabapentin 300 mg capsule 300 mg PO QDAY 08/24/22 02/14/24 paroxetine HCl 20 mg tablet 20 mg PO QDAY 08/24/22 02/14/24 Allergies Allergy/AdvReac Type Severity Reaction Status Date / Time tetracycline Allergy esophogeal Verified 04/04/24 15:36 ulcer thimerosal Allergy in eye Verified 04/04/24 15:36 gtts caused eyes to become bright red Review of Systems Status of ROS: Reports: 6 or more systems reviewed and unremarkable except as noted in History and below [facility] Medical History Vitamin D deficiency ?E55.9 - Vitamin D deficiency, unspecified (ICD-10) Basal cell carcinoma (BCC) ?C44.91 - Basal cell carcinoma of skin, unspecified (ICD-10) Anxiety ?F41.9 - Anxiety disorder, unspecified (ICD-10) Surgical History History of total vaginal hysterectomy (TVH) ?Z90.710 - Acquired absence of both cervix and uterus (ICD-10) Family History Father Stroke High blood pressure High cholesterol Diabetes Maternal Grandfather Stroke Paternal Grandfather Stroke Mother Cancer Social History Smoking Status: Never smoker Do you use any of these nicotine containing products: None Second hand tobacco smoke exposure: No How often do you have a drink containing alcohol: never How often do you have six or more drinks on one occasion: Never AUDIT-C Alcohol total score: 0 Non-prescribed substance use: denies use Exam Narrative: Exam Narrative: Very pleasant. Appears to have good energy. Skin is warm and dry. Extremities well perfused without edema. Do not see evidence of bleeding. Head is fully absent hair. Heart is in elevated rate regular rhythm. Breathing easily with lungs appearing to be clear. Cranial nerves 2-12 intact. Const: Vital Signs, click to edit/add: Vital Signs - 24 hr 04/06/24 17:55 04/06/24 19:56 Temperature 97.2 F L Pulse Rate [Pulse Oximeter] 94 92 Respiratory Rate 18 18 Blood Pressure [Le ft Upper Arm] 122/65 119/66 Pulse Oximetry 94 96 Oxygen Delivery Me thod Room Air Room Air Documenting provider has reviewed patient's vital signs: yes Course Vital Signs Vital signs: Initial Vital Signs Temperature 97.2 F L 04/06/24 17:55 Temperature Source Temporal Artery Scan 04/06/24 17:55 Pulse Rate 94 04/06/24 17:55 Pulse Rhythm Regular 04/06/24 17:55 Respiratory Rate 18 04/06/24 17:55 Blood Pressure 122/65 04/06/24 17:55 Blood Pressure Mean 84 04/06/24 17:55 Blood Pressure Position Sitting 04/06/24 17:55 Pulse Oximetry 94 04/06/24 17:55 Oxygen Delivery Method Room Air 04/06/24 17:55 Vital Signs Temperature 97.2 F L 04/06/24 17:55 Pulse Rate 94 04/06/24 17:55 Respiratory Rate 18 04/06/24 17:55 Blood Pressure 122/65 04/06/24 17:55 Pulse Oximetry 94 04/06/24 17:55 Oxygen Delivery Method Room Air 04/06/24 17:55 Temperature 97.2 F L 04/06/24 17:55 Pulse Rate 92 04/06/24 19:56 Respiratory Rate 18 04/06/24 19:56 Blood Pressure 119/66 04/06/24 19:56 Pulse Oximetry 96 04/06/24 19:56 Oxygen Delivery Method Room Air 04/06/24 19:56 Medical Decision Making MDM Narrative Medical decision making narrative: Will recheck labs as requested. Presumably these levels are due to chemo. Labs returned with a white count of 3.4, hemoglobin 7.5 hematocrit of 23 platelets of 4 absolute neutrophil count of 700 Unsure where this is trending at this point. Two days ago hemoglobin was 8.5 hematocrit was 27 and platelets were 17 and absolute neutrophil count was 1000 I do manage to speak and oncology team at [email or web address]. Suspicion has been of alloimmunization that is responsible for chewing up these blood products. Working with [facility] to obtain matched product. Recommendations are that if possible we might transfuse tomorrow and the next day some platelets. See patient discharge plan for further discussion Medical Records Medical records reviewed: Yes I reviewed the patient's medical records Lab Data Lab results reviewed: Yes I reviewed the patient's lab results Labs: Lab Results 04/06/24 Range/Units 18:26 WBC 3.44 L (4.50-11.00) K/uL RBC 2.40 L (4.00-5.20) m/uL Hgb 7.5 L* (12.0-16.0) gm/dL Hct 23.2 L (33.0-51.0) % MCV 97 (80-100) fL MCH 31 (26-34) pg MCHC 32 (32-36) gm/dL RDW Coeff of [place] 16.1 H (11.5-15.5) % Plt Count 4 L* (140-440) K/uL Neut % (Auto) 21.5 L (42.0-72.0) % Lymph % (Auto) 26.7 (20-44) % [place] % (Auto) 27.9 H (0.0-11.0) % Eos % (Auto) 4.7 (0.0-7.0) % Baso % (Auto) 0.3 (0.0-3.0) % Neut # (Auto) 0.70 L (1.7-7.0) K/uL Lymph # (Auto) 0.90 (0.90-2.90) K/uL [place] # (Auto) 1.00 H (0.00-0.90) K/UL Eos # (Auto) 0.20 (0.00-0.50) K/uL Baso # (Auto) 0.00 (0.00-0.30) K/uL Abs Immat Gran (auto) 0.70 H (0.00-0.30) K/uL Imm/Tot Granulo (auto) 18.9 % Discharge Plan 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 Take care not to engage in vigorous or potentially traumatizing activity at this time. Otherwise return/be seen for other concerning signs and symptoms, increasing shortness of breath, fever. I did speak with your oncology team today. Anticipate a call from them on Tuesday. If you do not hear from them by noon I would go ahead and call them Prescriptions: No Action estradiol 0.01 % (0.1 mg/gram) cream 1 vaginal .Twice Weekly Rx Instructions: use 0.5 g nightly for two weeks, then 1 g twice weekly paroxetine HCl 20 mg tablet 20 mg PO QDAY gabapentin 300 mg capsule 300 mg PO QDAY Follow Up/Referrals: Jeri Wheeler PA-C [Primary Care Provider] - Stand Alone Forms: [employer] Info Instructions
[2024-04-06 18:32] LABS: Basophils Percent Auto 0.3 % (0.0-3.0); Eosinophils Percent Auto 4.7 % (0.0-7.0); Hematocrit 23.2 % (33.0-51.0); Immature Granulocytes Pct Auto 18.9 %; Lymphocytes Percent Auto 26.7 % (20-44); Mean Corpuscular HGB Conc 32 gm/dL (32-36); Mean Corpuscular Hemoglobin 31 pg (26-34); Mean Corpuscular Volume 97 fL (80-100); Monocytes Percent Auto 27.9 % (0.0-11.0); Neutrophils Percent Auto 21.5 % (42.0-72.0); RDW Coefficient of Variation % 16.1 % (11.5-15.5); White Blood Count* 3.44 K/uL (4.50-11.00)
--- NOTE | 2024-04-06 18:41 | ED.NURSE ---
Vick blood off of pt PICC line. Pt tolerated well, PICC line flushed with NS.
[2024-04-06 18:56] LABS: Hemoglobin* 7.5 gm/dL (12.0-16.0); Platelet Count* 4 K/uL (140-440); Slide Review Reflex No
--- NOTE | 2024-04-06 19:08 | ED.NURSE ---
Critical lab report of HGB 7.5, and platelet count of 4. MD aware.
[2024-04-06 19:56] VITALS: BP 119/66; PULSE 92; RESP 18; O2SAT 96
== END 2024-04-06 20:48 | disposition home or self-care (01) ==
PROVIDERS: Emergency Provider Family Medicine; PCP Physician Assistant Medical
DX: D69.59 Other secondary thrombocytopenia (principal)
CPT/HCPCS: 36415; 85025; 99283; 99284

== ENCOUNTER 2024-04-08 10:55 | Outpatient (RCR) | payer OTHER, SELFPAY ==
[2024-04-07 14:07] VITALS: BP 133/54; PULSE 106; RESP 18; TEMP 36.7; O2SAT 94
[2024-04-07 14:31] VITALS: BP 128/69; PULSE 102; RESP 20; O2SAT 96
[2024-04-07 14:32] VITALS: BP 126/70; PULSE 102; RESP 20; TEMP 36.8; O2SAT 95
[2024-04-07 16:43] VITALS: BP 137/70; PULSE 104; RESP 18; O2SAT 94
--- NOTE | 2024-04-07 16:48 | PC.NURSE ---
Transfusion note: [id number] Pt had no c/o pain, rash, or SOB upon arrival. VSS. Platelets infused without issue. VSS at 1 hr end of transfusion. Pt ambulated off unit
[2024-04-08 11:27] VITALS: BP 127/78; PULSE 81; RESP 16; TEMP 36.4; O2SAT 95
[2024-04-08 11:44] VITALS: BP 124/86; PULSE 80; RESP 18; TEMP 36.7
[2024-04-08 12:29] VITALS: BP 115/72; PULSE 83; RESP 18; O2SAT 96
[2024-04-08 13:29] VITALS: BP 126/93; PULSE 91; RESP 18; TEMP 36.7; O2SAT 97
--- NOTE | 2024-04-08 14:18 | PC.NURSE ---
Infusion Note: 11-14 pt ambulated onto shift. VSS. Infusion completed without complication. IV flushed. Pt ordered lunch while waiting the one hour after infusion. Ambulated off unit.
== END 2024-04-08 13:45 | disposition home or self-care (01) ==
LOC: BLOODTX 10:55
PROVIDERS: PCP Physician Assistant Medical; Visit Provider Family Medicine
DX: D69.6 Thrombocytopenia, unspecified (principal)
CPT/HCPCS: 36415; 36430; 86900; 86901; 99281; P9073